=== PATIENT | female | born 1945 | race Caucasian/White ===

== ENCOUNTER 2017-12-02 12:19 | Day surgery (SDC) | payer MEDICARE ==
[~2017-12-02 12:19] MED LIST: ASPI325T PO; CART240C4 PO; TOPR200T PO; VITAMINS
[2017-12-02] MEDS ORDERED: LACTATED RINGER'S 1000 ML IV PRN (13:00)
[2017-12-02] MEDS ORDERED: SODIUM CHLORID 0.9% 500 ML IV PRN (13:00)
[2017-12-02] MEDS ORDERED: POVIDONE IODINE 5% (ANTISEPSIS KIT) 4 APPLICATIONS EACH NARE PRN (13:00)
[2017-12-02] MEDS ORDERED: METOPROLOL TARTRATE 25 MG TAB PO PRN (13:00)
[2017-12-02] MEDS ORDERED: CHLORHEXIDINE GLUCONATE 2 % 1 PACK (2 CLOTHS) TOPICAL PRN (13:00)
[2017-12-02] MEDS ORDERED: TOPR200T PO (13:01)
[2017-12-02] MEDS ORDERED: FURO20TA PO (13:01)
[2017-12-02] MEDS ORDERED: DILT-48 PO (13:01)
[2017-12-02] MEDS ORDERED: XARE20TA PO (13:01)
[2017-12-02] MEDS ORDERED: DIGO0.12 PO (13:01)
[2017-12-02] MEDS ORDERED: AMBI10TA PO (13:01)
--- NOTE | 2017-12-02 14:42 | CF ---
cc: Rogelio Luevano MD,Alf Ortiz,Riky Schofield MD DATE: 12/02/2017 PROCEDURE PERFORMED: Transesophageal echocardiogram. INDICATIONS FOR PROCEDURE: Evaluate mitral regurgitation. CONSENT: Fully informed consent was obtained prior to the procedure. The risks of , cardiac arrest, foreseen and unforeseen complications were reviewed. The patient appeared to fully understand the risks. PROCEDURAL STATEMENT: The patient was draped and prepped in the usual manner. Anesthesia was given as per the Anesthesia Department and a full HUSEYIN was performed. FINDINGS: There is evidence of severe mitral regurgitation. It is a single jet which is central. There is evidence of severe biatrial enlargement. Interatrial septum is intact. Left ventricular systolic function is normal. Right ventricular function appears normal. There is evidence of moderate tricuspid regurgitation. Aorta was visualized to 40 cm. There is evidence of mild plaquing. CONCLUSION: Significant severe mitral regurgitation, central with a jet near the apex of the left atrium. PLAN: Consider diagnostic heart catheterization to evaluate mitral regurgitation more with possible view to mitral valve repair with atrial fibrillation ablation. MD MODE Monterroso/HOMAR , 02:10 PM , 02:41 PM
== END 2017-12-02 14:50 | disposition home or self-care (01) ==
LOC: HSDC 12:19 → HDIC 12:19 → HSDC 14:50
PROVIDERS: ATTEND Internal Medicine Cardiovascular Disease
DX: I34.0 Nonrheumatic mitral (valve) insufficiency (principal); I10 Essential (primary) hypertension; I48.91 Unspecified atrial fibrillation; Z79.01 Long term (current) use of anticoagulants
CPT/HCPCS: 93312; 93320; 93325